=== PATIENT | male | born 1970 | race Caucasian/White ===

== ENCOUNTER → 2019-01-16 | Outpatient (CLI) | payer OTHER | LOC: COL.RAD 08:43 | DX: M19.011 Primary osteoarthritis, right shoulder (principal); M75.101 Unspecified rotator cuff tear or rupture of right shoulder, not specified as traumatic; M89.311 Hypertrophy of bone, right shoulder ==

== ENCOUNTER → 2019-05-17 | Outpatient (CLI) | payer OTHER | LOC: COL.RAD 06:54 | DX: M75.82 Other shoulder lesions, left shoulder (principal); M89.312 Hypertrophy of bone, left shoulder ==